=== PATIENT | female | born 1985 | race African-American/Black ===

== ENCOUNTER 2017-03-07 17:45 | Emergency (ER) | payer OTHER ==
[~2017-03-07] VITALS: Ht 154.9 cm; Wt 77.1 kg
[2017-03-07] MEDS ORDERED: IBUPROFEN 600 MG TABLET. PO ONE (20:15)
[2017-03-07] MEDS ORDERED: ACETAMINOPHEN 325 MG TABLET. PO ONE (20:15)
--- NOTE | 2017-03-07 20:26 | PHYS DOC ---
Past Medical History Past Medical History: No Pertinent History, Other Additional Past Medical Histor: "CYST ON NECK" Past Surgical History: Alcohol Use: None Drug Use: None Adult General Chief Complaint Chief Complaint: HEADACHE HPI HPI Patient is a 31 year old 2 month female has with nasal congestion, sore throat and intermittent headaches for the past 2 weeks. Patient's been evaluated by her PCP and had an outpatient CT which she reports as negative. She has subsequently been seen in follow-up prescribed antibiotics for treatment of sinusitis and is currently on day 4 of her antibiotic and is currently taking ibuprofen with limited relief. Patient's headache is located apically described as throbbing associated with paresthesias of scalp and maxillary face. Patient denies change in vision, neck stiffness, neck pain, nausea, vomiting, extremity weakness or loss of sensation. This is not the worst headache of the patient's life. Patient also reports chest heaviness and brief episode of sharp chest pain today which is currently resolved. Patient denies shortness of breath, cough, fever, increased leg pain or swelling. No history of DVT or PE. Patient is not currently on control. Last menstrual period was one week ago. Review of Systems Review of Systems Constitutional: Denies fever or chills [] Eyes: Denies change in visual acuity, redness, or eye pain [] HENT: Denies nasal congestion or sore throat [] Respiratory: Denies cough or shortness of breath [] Cardiovascular: No additional information not addressed in HPI [] GI: Denies abdominal pain, nausea, vomiting, bloody stools or diarrhea [] : Denies dysuria or hematuria [] Musculoskeletal: Denies back pain or joint pain [] Integument: Denies rash or skin lesions [] Neurologic: Denies headache, focal weakness or sensory changes [] Endocrine: Denies polyuria or polydipsia [] Current Medications Current Medications Current Medications Medications (Trade) Dose Ordered Sig/[place]ana Start Time Stop Time Status Last Admin Dose Admin Acetaminophen (Tylenol) 650 mg 1X ONCE 03/07/17 20:15 03/07/17 20:16 DC 03/07/17 20:23 650 MG Ibuprofen (Motrin) 600 mg 1X ONCE 03/07/17 20:15 03/07/17 20:16 DC 03/07/17 20:23 600 MG Allergies Allergies Allergies Coded Allergies Type Severity Reaction Last Updated Verified amoxicillin Allergy Intermediate Hives 03/07/17 Yes Physical Exam Physical Exam Constitutional: Well developed, well nourished, anxious, tearful [] HENT: Normocephalic, atraumatic, bilateral external ears normal, oropharynx moist, no oral exudates, nose normal. [] Eyes: PERRLA, EOMI, conjunctiva normal, no discharge. Maxillary sinus tenderness. [] Neck: Normal range of motion, no tenderness, supple, no stridor. [] Cardiovascular:Heart rate regular rhythm, no murmur. Negative Homans signs. [] Lungs & Thorax: Bilateral breath sounds clear to auscultation [] Abdomen: Bowel sounds normal, soft, no tenderness, no masses, no pulsatile masses. [] Skin: Warm, dry, no erythema, no rash. [] Back: No tenderness, no CVA tenderness. [] Extremities: No tenderness, no cyanosis, no clubbing, ROM intact, no edema. [] Neurologic: Alert and oriented X 3, cranial nerves II through XII grossly intact , no focal extremity weakness or loss of sensation. [] Psychologic: Affect normal, judgement normal, mood normal. [] Current Patient Data Vital Signs Vital Signs Date Time Temp Pulse Resp B/P (MAP) Pulse Ox O2 Delivery O2 Flow Rate FiO2 03/07/17 18:37 98.3 102 18 118/74 (89) 100 Room Air 98.3 Lab Values Laboratory Tests Test 03/07/17 17:36 POC Urine HCG, Qualitative Hcg negative (Negative) EKG EKG [EKG: Normal sinus rhythm, rate 81, no acute ST-T wave changes.] Radiology/Procedures Radiology/Procedures [] Course & Med Decision Making Course & Med Decision Making Pertinent Labs and Imaging studies reviewed. (See chart for details) [Patient is currently taking care of a 2 month at home with likely sleep disruption contributing to her headaches. Patient is afebrile nontoxic with no neck pain stiffness or rigidity or rash noted. Headache is intermittent and she reports negative outpatient CT scan. Patient is tearful and anxious and reports feeling frustrated that her headaches continues. I suspect is the cause her chest pain. Patient's EKG is unremarkable. The patient is not hypoxic or tachycardic. She has negative Homans signs. PE considered but thought to be doubtful. Further imaging studies are not indicated at this time.] Dragon Disclaimer Dragon Disclaimer This electronic medical record was generated, in whole or in part, using a voice recognition dictation system. Departure Departure Impression: Primary Impression: Headache Disposition: 01 HOME, SELF-CARE Condition: GOOD Referrals: UNKNOWN PCP NAME (PCP) Patient Instructions: General Headache Without Cause, [id number] Additional Instructions: You were evaluated in the emergency department for headache and chest pain. An EKG was performed and is normal. The exact cause of your headache has not been determined but may related to sinusitis and sleep schedule changes. Please take Tylenol ibuprofen and caffeine for headache and follow-up with your PCP for further management. If you develop new or worsening symptoms, please return to the emergency department. CORBY GRIGGS DO Mar 07, 2017 20:26
[2017-03-07 21:02] VITALS: BP 103/68
--- NOTE | 2017-03-08 06:17 | EKG ---
[facility] [address] [place] [address] Test Date: 2017-03-07 Test Time: 20:14:48 Pat Name: LATANYA RAMOS Department: Room: Gender: F Diesel Mechanic: : 1985 Requested By: CORBY GRIGGS Order Number: [id number] Reading MD: Piero Quiros Measurements Intervals [place] Rate: 81 P: 0 WA: 138 QRS: 37 QRSD: 86 T: 13 QT: 366 QTc: 426 Interpretive Statements SINUS RHYTHM Electronically Signed On 03-09-2017 11:18:58 CDT by Piero Quiros
== END 2017-03-07 21:02 | disposition home or self-care (01) ==
LOC: ER 17:45
DX: R51 Headache (principal); R09.81 Nasal congestion; J02.9 Acute pharyngitis, unspecified; Z88.1 Allergy status to other antibiotic agents
CPT/HCPCS: 81025; 93005; 99283